=== PATIENT | female | born 1970 | race Caucasian/White ===

== ENCOUNTER 2017-12-02 15:30 | Outpatient (RCR) | payer OTHER, SELFPAY ==
--- NOTE | 2017-11-16 16:43 | HP.PTEVAL_ITS ---
Patient's Visit Information SANTI MOSELEY is a 46 year old F referred to Physical Therapy by Out of Town Doctor with a diagnosis of Lumbar strain. Date of Evaluation: 11/16/17 Physical Therapist: Kwesi Castillo, PT, - Visit Plan Frequency: 3x /Week Duration: 4 Weeks Plan: Inital focus on restoring ROM, mechanical response with REIL during eval. Progress to core strengthening activities and then to work simulation activities. Modalities and manual ther prn. - Subjective Subjective: This 46 y/o female pesents to physical therapy with low back pain.Pt with work injury on 10/22/17. She was placing boxes from ground to a higher position than what she was used to. These boxes were not heavy, no more than 10#. She did not have pain while at work but when she got home she could not stand or walk later that evening. She was evaluated by [facility] a few days after. She had no imaging or medications prescribed. She reports shooting pain in center low back with occational radiation down the posterior R LE but not distal to the knee. Denies pain currently, but last time she had pain was over the weekend when she was sitting for a long period of time, she thinks standing might have helped a little afterwards. She is currently on light duty, option to go back to full duty on 11/23/17. No f/u scheduled with , will schedule if needed. Overall doing better, some limitation with sitting for prolonged durations and still slightly sore after work. 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 GAIT : miriam jonel. ROM: Lumbar flexion 50%, extension 25%, B LF 100%. Bilateral hip PROM full and nonpainful. NEURO: dermatome intact, myotome intact , L3/S1 DTR 2+. ASSESSORY: hypomobile L5 PAIVM. FLEXIBILITY: Normal HS flexibility. MMT: quads/hams/hip 4/5 ,ankle 5/5,great toe extensors 4/5 - Special Tests L/S Left Straight Leg Raise: Negative L/S Right Straight Leg Raise: Negative Lumbar Standing: Flexion - Mechanical Response: No effect Lumbar Standing: Flexion - Symptoms During Testing: Increases Lumbar Standing: Flexion - Symptoms After Testing: No worse Lumbar Standing: Extension - Mechanical Response: No effect Lumbar Standing: Extension - Symptoms During Testing: Increases Lumbar Standing: Extension - Symptoms After Testing: No worse Lumbar Lying: Flexion - Mechanical Response: No effect Lumbar Lying: Flexion - Symptoms During Testing: No effect Lumbar Lying: Flexion - Symptoms After Testing: No effect Lumbar Lying: Extension - Mechanical Response: Increases motion Lumbar Lying: Extension - Symptoms During Testing: Increases Lumbar Lying: Extension - Symptoms After Testing: No worse Comments:: After testing, standing flexion 75%, extension 75%. - Goals Goal 1:: Pt will demonstrate full lumbar ROM without pain to improve tolerance with work related tasks. Goal Time Frame: 4-6 Weeks Goal 2:: Pt will demonstrate squat lift with 25# without pain and proper mechanics to demonstrate safe return to full duty work. Goal Time Frame: 4-6 Weeks Goal 3:: Pt will be independent with HEP to sustain gains made in the clinic. Goal Time Frame: 4-6 Weeks Goal 4:: Pt will report at least 50% improvement on the MARC to demonstrate improved functional tolerance. Goal Time Frame: 4-6 Weeks Goal 5:: Patient be d/c to prophalxis to diminish recurrance. Goal Time Frame: 4-6 Weeks - Rehabilitation Potential Physical Therapy Diagnosis: Pt si 46 y/o female with referral of lumbar strain. She had work related injury on 10/22/17. This is a [facility] claim. She reports marked improvement since initial onset. She does demonstrate a moderate loss of lumbar ROM initially. After mobilizations and REIL, mechanical response observed in both flexion and extension motions in standing. She has activity limitations that include decreased tolerance with prolonged sitting and lifting. This affects her work tolerance and driving long distances. Pt will benefit from skilled PT to address mentioned impairments and progress to work simulated activities to prevent future risk of injury and return the pt to full duty work. Rehabilitation Potential: Excellent - Anticipated Interventions Patient/Client Instruction: Educate patient on: Condition, Plan of Care For the Purpose of:: To decrease pain, To increase ROM, To improve muscle performance and motor function, To improve ability of physical actions for home/ community/work/leisure, To improve self management, To prevent re-injury Therapeutic Exercise to Include: Strength training, Endurance training, Body mechanics, Postural training, Flexibilty training, Active ROM, Dynamic Lumbar Stabilization, Hyun Exercises For the Purpose of:: To decrease pain, To increase ROM, To increase tolerance to activity/condition/position, To improve ability of physical actions for home/ community/work/leisure, To increase flexibility/ROM, To improve endurance, To improve self management, To prevent re-injury Functional Training to Include: Functional work training For the Purpose of:: To increase tolerance to activity/condition/position, To improve ability of physical actions for home/community/work/leisure, To improve self management, To prevent re-injury Manual Therapy Techniques to Include: Mobilization, Soft tissue mobilization For the Purpose of:: To decrease pain, To increase ROM, To increase tolerance to activity/condition/position, To improve ability of physical actions for home/ community/work/leisure, To decrease soft tissue restriction, To increase flexibility/ROM Cryotherapy (ice pack, ice massage): Yes Thermo therapy (hot pack): Yes Ultrasound (thermal/non thermal): Yes For the Purpose of:: To decrease pain, To increase ROM, To increase tolerance to activity/condition/position, To improve ability of physical actions for home/ community/work/leisure, To decrease soft tissue restriction, To increase flexibility/ROM Thank you for the opportunity to evaluate your patient. For Medicare and Medicare HMO plans, please review the plan of care and approve it. It will need to be FAXED BACK to us at [phone] for Medicare purposes. Please let me know if there are questions or concerns regarding this plan of care. Physician Signature: Date:
--- NOTE | 2017-12-02 16:02 | HP.PTDCSUM_ITS ---
HP - PT D/C Summary It has been my pleasure to treat SANTI MOSELEY under orders from [facility] of [facility], for the diagnosis of Lumbar strain for a total of 7 visit(s). Discharge Date: 12/02/17 Please see the following information for a summary of their discharge status. - Subjective Subjective: Pt continues to report improvement. Denies pain prior to session. No difficulty with work related tasks. - Pain low back Pain Intensity (Out of 10): 0 - Overall Improvement % Improvement: 99 - Objective Objective/Function: POSTURE: WNL. GAIT: normal jonel. MMT: 4/5. LUMBAR ROM : flexion WFL, extension mon ,side glides WNL. -SLR - Goals Goal 1:: Pt will demonstrate full lumbar ROM without pain to improve tolerance with work related tasks. Goal Progress: Goal Met Goal 2:: Pt will demonstrate squat lift with 25# without pain and proper mechanics to demonstrate safe return to full duty work. Goal Progress: Goal Met Goal 3:: Pt will be independent with HEP to sustain gains made in the clinic. Goal Progress: Goal Met Goal 4:: Pt will report at least 50% improvement on the MARC to demonstrate improved functional tolerance. Goal Progress: Goal Met Goal 5:: Patient be d/c to prophalxis to diminish recurrance. Goal Progress: Goal Met - Plan Plan: Discharge with HEP. - D/C Information Discharge Comments: HEP,MET GOALS If there are questions or concerns regarding this patient's physical therapy, please feel free to call me at [phone]. Thank you for the referral of this patient. Sincerely, Kwesi Castillo, PT,
== END 2017-12-02 16:31 | disposition home or self-care (01) ==
LOC: PT 15:30
DX: S39.012D Strain of muscle, fascia and tendon of lower back, subsequent encounter (principal)
CPT/HCPCS: 97110; 97162